=== PATIENT | female | born 1945 | race Caucasian/White ===

== ENCOUNTER 2018-01-30 08:57 | Inpatient (IN) | payer OTHER, MEDICARE ==
[~2018-01-30] VITALS: Ht 165.1 cm; Wt 90.8 kg
--- NOTE | ~2018-01-30 | HC ---
[facility] [place] [address] CONSULTATION Name: ALEC BALBUENA Room #: 217-P ADM IN M.R.#: [id number] Admission: 01/30/18 Attend Phys: Amanda Odell MD Discharge: Date of : 45 Report #: [id number] THIS REPORT FOR: //name// CC: Ramonita Odell MD REASON FOR CONSULTATION: Possible history of carcinoid though I talked with Dr. Hernandez Pina and the patient has not had a biopsy proven tissue nor DOTA-HORNE PET scan evidence of tumor. He does not think the patient actually has carcinoid. REQUESTED BY: Amanda Odell MD. PROVIDED BY: Adilson Diego MD. HISTORY OF PRESENT ILLNESS: The patient is a 72-year-old female who came for acute mental status changes from [facility]. She has been treated for UTI and became more changes in her mental status. She also had a CAT scan since she has been here, appears to have some thickening of the descending and sigmoid colon. There is a concern about possible colitis. It sound like appears also some air in the bowel wall. The patient is able to answer some simple questions today. Per her, she has been seeing Dr. Pina for about 6 years. Certainly, she has had some chronic abdominal pain, has had some other symptoms and according to Dr. Pina, he had had a trial of Sandostatin in the past when her diarrhea got very bad, but it sounds like a DOTA-HORNE PET, which is very sensitive for carcinoid tumor was negative. She has never had any evidence of progressive changes on CAT scans that sound like her tumor markers have never been significantly elevated to suggest an occult tumor. His current thinking is that she most likely does not have a carcinoid tumor causing her current symptoms. The patient at this time talks about having abdominal discomfort, some slight nausea, it sounds like she has had it consistently, but it sounds like a little bit worse than usual, sound like per a comment she made that she might have had something similar about a year ago. She also has trouble tolerating narcotics. She has episodes of diarrhea occasionally. She has not had any recent worsening of her dysuria. No skin rashes. I am not sure that she has had any flushing so to speak. She is not really aware of any fevers. It sounds like she denies any melena or hematochezia. PAST HISTORY: As best we can tell, there are still awaiting records from [facility]. There is a history of some chronic diarrhea and abdominal pain, also may be colitis a year ago, also possible coronary artery disease, possible COPD, possible hypertension, also was found to have a possible early altered mental status. FAMILY HISTORY: It sounds like there is no one specifically in the family with [facility] [address] [address] CONSULTATION Name: ALEC BALBUENA Room #: 217-P ADM IN M.R.#: [id number] Admission: 01/30/18 Attend Phys: Amanda Odell MD Discharge: Date of : 45 Report #: [id number] the cancer, though she does have a nephew with some type of colon difficulties. SOCIAL HISTORY: She most recently had had a job. 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 Stopped smoking when she was back in her 30s. No alcohol, no street drugs. ALLERGIES: SUPPOSEDLY SHE HAD HAD TROUBLES WITH BELLADONNA, CODEINE, ERYTHROMYCIN, HYDROCODONE, HYDROMORPHONE, IBUPROFEN, LOVASTATIN, MORPHINE, NIFEDIPINE, PHENOBARBITAL, SHELLFISH AND MEPERIDINE. MEDICATIONS: At this time in the hospital currently include amlodipine 5 b.i.d., metronidazole IV b.i.d., Cipro b.i.d. IV, labetalol 20 mg q. 1 IV p.r.n., Compazine 25 q. 12 p.r.n., Zofran 8 mg q. 6 scheduled IV, doxazosin 2 mg at bedtime, metoclopramide 5 mg a.c. and at bedtime, diltiazem 240 daily, oral lisinopril 40 daily, carvedilol 25 b.i.d., hydralazine 50 t.i.d., Tylenol p.r.n., Lovenox 40 mg at bedtime, did receive a dose of cefoxitin in the ER. PHYSICAL EXAMINATION: GENERAL: The patient appears her stated age. VITAL SIGNS: Height is 5 feet 5 inches or 165.1 cm, weight is 212 pounds or 96.2 kilograms. Recent blood pressure is 218/96 with respirations of 19, pulse of 89, temperature is afebrile at 98.2. NEUROLOGIC: The patient's mood is pleasant. She was awoken from sleep, little slow on answering questions, was a bit fuzzy and where she is, but got the date after some thinking. Face appears to be symmetrical, moving extremities. Speech pattern, slow, but appears intentional. LYMPHATICS: No enlarged lymph nodes in the supraclavicular, cervical, axillary or inguinal region. ABDOMEN: Slightly obese, mildly uncomfortable/tender. No obvious masses or organomegaly. EXTREMITIES: Without clubbing, cyanosis, does not appear to have any edema. LABORATORY DATA: Lab results here show electrolytes normal, creatinine 1.2, transaminases normal, alkaline phosphatase 89, total bilirubin 0.3, albumin 3. Recent white count 7.1, hemoglobin 12.8, MCV 79.6, platelets 204, differential nonacute. UA dipstick here had 2+ protein, positive for nitrite. Originally on admission, did have 10-30 moderate bacteria. Urine culture at this time shows less than 10,000 colony forming units of bacteria per mL. ASSESSMENT AND PLAN: 1. Question of carcinoid, this is not proven, talked to Dr. Ng or communicate with Dr. Hernandez Pina. He is doubtful that the patient has a tumor and has never had a biopsy according to his communication, had a DOTA-HORNE PET, which was unremarkable and also sounds like urine and serum markers have not shown suggested evidence of carcinoid tumor, not think the patient has not [address] [address] CONSULTATION Name: ALEC BALBUENA Room #: 217-P ADM IN .R.#: [id number] Admission: 01/30/18 Attend Phys: Amanda Odell MD Discharge: Date of : 45 Report #: [id number] benefited from octreotide for diarrhea, which can be nonspecific. 2. Possible colitis per clinical and CT findings, on antibiotics. GI is following. 3. History of possible Klebsiella urinary tract infection and sepsis. Continue with antibiotics. Cultures here were drawn after being on antibiotics. 4. Mentation changes may be related to infections above, though I am not sure her baseline, slightly fuzzy today, not sure if this is worse or better. 5. Chronic, it is hard to tell either abdominal, back pain or both, has some type of a stimulator pump device in place, intolerant of oral agents. 6. Hypertension, very high on multiple medications per others. 7. Possible history of coronary artery disease per others. 8. Supposedly history of chronic obstructive pulmonary disease, per others. We will be available if questions arise. <ELECTRONICALLY SIGNED> By: Adilson Diego MD 02/06/18 0719 0904 1231 Adilson Diego MD /nt
--- NOTE | ~2018-01-30 | 2DMMODE ---
[facility] [address] [place] [address] 2 D/M-MODE ECHOCARDIOGRAM Name: ALEC BALBUENA Jose Carlos Room #: 217-P ADM IN ..#: [id number] Admission: 01/30/18 Attend Phys: Amanda Odell MD Discharge: Date of : 45 Date of Service: 02/05/18 1200 Report #: [id number] THIS REPORT FOR: //name// APPROVED REPORT Study performed: 02/05/2018 11:06:15 EXAM: Comprehensive 2D, Doppler, and color-flow Echocardiogram Patient Location: In-Patient Room #: [facility] Status: routine BSA: 2.03 HR: 70 bpm BP: 218/96 mmHg Other Information Study Quality: Adequate Indications Diabetes CAD labile HTN, HLD, DALIA, stents x4 2D Dimensions RVDd: 35.69 mm IVSd: 13.66 (7-11mm) LVOT Diam: 21.00 (18-24mm) LVDd: 48.74 mm PWd: 13.61 (7-11mm) Ascending Ao: 26.69 (22-36mm) LVDs: 29.66 (25-40mm) Aortic Root: 30.15 mm IVC: 23.00 mm Volumes Left Atrial Volume (Systole) Single Plane 4CH: 50.55 mL Single Plane 2CH: 80.36 mL LA ESV Index: 33.00 mL/m2 Aortic Valve AoV Peak Perry.: 1.86 m/s AO Peak Gr.: 13.91 mmHg LVOT Max P.00 mmHg LVOT Max V: 1.32 m/s TOSHIA Vmax: 2.46 cm2 Mitral Valve E/A Ratio: 1.2 MV Decel. Time: 316.67 ms [facility] [address] [place] [address] [place] [address] 2 D/M-MODE ECHOCARDIOGRAM Name: ALEC BALBUENA Jose Carlos Room #: 217-P [facility] IN ..#: [id number] Admission: 01/30/18 Attend Phys: Amanda Odell MD Discharge: Date of : 45 Date of Service: 02/05/18 1200 Report #: [id number] MV E Max Perry.: 0.99 m/s MV A Perry.: 0.86 m/s MV PHT: 91.84 ms IVRT: 92.27 ms Pulmonary Valve PV Peak Perry.: 1.17 m/s PV Peak Gr.: 5.52 mmHg Pulmonary Vein P Vein S: 0.55 m/s P Vein A: 0.22 m/s P Vein D: 0.68 m/s P Vein A Dur.: 175.3 msec P Vein S/D Ratio: 0.81 Tricuspid Valve TR Peak Perry.: 3.14 m/s RAP Estimate: 10.00 mmHg TR Peak Gr.: 39.50 mmHg PA Pressure: 50.00 mmHg Left Ventricle The left ventricle is normal size. Mild to moderate concentric left ventricular hypertrophy. The left ventricular systolic function is normal. The left ventricular ejection fraction is within the normal range. LVEF is 60%. Right Ventricle The right ventricle is normal size. The right ventricular systolic function is normal. Atria Left atrium is at the upper limits of normal. Right atrium is at the upper limits of normal. Aortic Valve Aortic valve is mildly calcified. Trace aortic regurgitation. There is no aortic valvular stenosis. Mitral Valve The mitral valve is normal in structure. Trace mitral regurgitation. No evidence of mitral valve stenosis. Tricuspid Valve The tricuspid valve is normal in structure. mild to moderate tricuspid regurgitation with an eccentric jet. PAP is estimated at 50 mmHg Pulmonic Valve [address] [address] 2 D/M-MODE ECHOCARDIOGRAM Name: ALEC BALBUENA Room #: 217-P [facility] IN .R.#: [id number] Admission: 01/30/18 Attend Phys: Amanda Odell MD Discharge: Date of : 45 Date of Service: 02/05/18 1200 Report #: [id number] Pulmonic valve is not well visualized. Trace to mild pulmonic regurgitation. Great Vessels The aortic root is normal in size. IVC is dilated and collapses >50% with inspiration. Pericardium There is no pericardial effusion. <Conclusion> The left ventricle is normal size. LVEF is 60%. Left atrium is at the upper limits of normal. Right atrium is at the upper limits of normal. Aortic valve is mildly calcified. Trace aortic regurgitation. There is no aortic valvular stenosis. The mitral valve is normal in structure. Trace mitral regurgitation. The tricuspid valve is normal in structure. mild to moderate tricuspid regurgitation with an eccentric jet. PAP is estimated at 50 mmHg There is no pericardial effusion. <ELECTRONICALLY SIGNED> By: Betito Pearson MD 02/05/181199 1200 99 Betito Pearson MD /INF
[~2018-01-30 08:57] MED LIST: ADULT LOW DOSE81 MG; ASMANEX0.135 G1 IH; ASMANEX0.135 GM IH; ASPIRIN EC81 M1 PO; ASPIRIN325 PO; B-50 COMPLEX1 EAC1; BENADRYL25 MG; BENADRYL25 MG PO; CARAFATE 1 GM TA1 G1 PO; CARVEDILOL12.5 MG PO; CELEXA 20 MG TA20 M1 PO; CELEXA40 MG PO; COZAAR100 MG PO; DICYCLOMINE HCL20 MG PO; DILTIAZEM 24HR240 MG PO; EFFIENT10 MG PO; ESTROPIPATE0.75 MG PO; FERREX 150150 MG PO; GABAPENTIN100 MG PO; GLUCOPHAGE500 MG PO; GLUMETZA500; IMDUR 30 MG TAB30 M1; IMDUR 30 MG TAB30 M1 PO; IMDUR 60 MG TAB60 M1 PO; K-DUR 20 MEQ T20 MEQ PO; KEFLEX500 MG PO; KLOR-CON 1010 MEQ PO; LASIX 20 MG TAB20 MG PO; LISINOPRIL20 MG PO; METFORMIN PO; NEURONTIN 300M300 M2 PO; NEXIUM 40 MG CA40 M1 PO; NITROSTAT0.4 MG SUBLING; NOVOLOG100 UNIT/1; PREDNISOLONE PO; PREDNISONE 20 M20 MG OR; PREDNISONE PO; PROAIR HFA8.5 GM INH; PROTONIX40 M2; SPIRIVA INH; SYMBICORT160 MCG/4. INH; TESSALON PERLE100 MG PO; TOPROL XL100 MG PO; VENTOLIN17 GM; VITAMIN B-625 MG PO; VITCB500GO PO; XANAX 0.5 MG0.5 M1 PO; ZANTAC 150MG T150 M1 PO; ZOCOR40 MG PO
[2018-01-30 08:58] VITALS: BP 123/54
[2018-01-30 10:01] LABS: ABSOLUTE NEUTROPHILS 5.5 thou/uL (1.4-8.2); BASOPHILS 0.4 % (0.0-2.0); EOSINOPHILS 1.1 % (0.0-3.0); HEMATOCRIT 35.2 % (37.0-47.0); HEMOGLOBIN 11.9 gm/dL (12.0-15.0); LYMPHOCYTES 12.8 % (24.0-44.0); MCH 27.3 pg (26.0-34.0); MCHC 33.8 g/dL (28.0-37.0); MCV 80.8 fL (80.0-100.0); PLATELET COUNT 161 thou/uL (150-400); POLYS 75.7 % (36.0-66.0); RBC 4.36 mil/uL (4.20-5.00); RDW 14.3 % (10.5-14.5); WBC 7.3 thou/uL (4.0-11.0)
[2018-01-30 10:06] LABS: URINE BILIRUBIN NEGATIVE (Negative); URINE BLOOD NEGATIVE (Negative); URINE CLARITY CLEAR; URINE COLOR YELLOW; URINE GLUCOSE-RANDOM* NEGATIVE (Negative); URINE KETONES NEGATIVE (Negative); URINE PROTEIN (DIPSTICK) 2+ (Negative); URINE UROBILINOGEN 0.2 E.U./dl (0.2-1.0)
[2018-01-30 10:07] LABS: URINE LEUKOCYTES-REFLEX TRACE (Negative); URINE NITRITE-REFLEX POSITIVE (Negative)
[2018-01-30 10:11] LABS: CREATININE 1.1 mg/dL (0.6-1.0); POTASSIUM 3.6 mmol/L (3.5-5.1)
[2018-01-30 10:14] LABS: MUCUS 0-3 Light strn/LPF (None Seen); SQUAMOUS 0-3 Few /LPF (0-3)
[2018-01-30 10:15] LABS: CASTS None Seen /LPF (None Seen); URINE RBC 3-10 Few /HPF (0-2); WBC CLUMPS Few (None Seen)
[2018-01-30 10:16] LABS: CRYSTALS None Seen /LPF (None Seen); RENAL EPITHELIAL CELLS 0-3 Few /LPF (None Seen); TRANSITIONAL EPITHEL CELL 0-3 Few /LPF (None Seen)
[2018-01-30 16:25] VITALS: BP 145/68
[2018-01-30 18:47] VITALS: BP 145/68
[2018-01-31 03:32] VITALS: BP 121/59
[2018-01-31] MEDS ORDERED: COREG25 MG PO (04:47)
[2018-01-31] MEDS ORDERED: CLONIDINE0.1 PO (04:48)
[2018-01-31] MEDS ORDERED: CRANBERRY CONC500 MG PO (04:50)
[2018-01-31] MEDS ORDERED: BENTYL 20 MG TA20 M1 PO (05:03)
[2018-01-31] MEDS ORDERED: PROZAC20 MG PO (05:05)
[2018-01-31] MEDS ORDERED: FLONASE 0.05%50 MCG NASAL (05:06)
[2018-01-31] MEDS ORDERED: HYDRALAZINE 2525 MG PO (05:07)
[2018-01-31] MEDS ORDERED: GLIMEPIRIDE1 MG PO (05:07)
[2018-01-31] MEDS ORDERED: LIDOCAINE PAIN1 EACH TOP (05:12)
[2018-01-31] MEDS ORDERED: MIRALAX17 GM PO (05:15)
[2018-01-31] MEDS ORDERED: OMEPRAZOLE40 MG PO (05:16)
[2018-01-31] MEDS ORDERED: NAMENDA 10 MG T10 MG PO (05:16)
[2018-01-31] MEDS ORDERED: VITAMIN B-12500 MCG PO (05:17)
[2018-01-31] MEDS ORDERED: ONDANSETRON HCL4 M2 PO (05:18)
[2018-01-31] MEDS ORDERED: LISINOPRIL20 MG PO (05:20)
[2018-01-31] MEDS ORDERED: TYLENOL325 MG PO (05:24)
[2018-01-31 07:17] VITALS: BP 152/69
[2018-01-31 20:01] VITALS: BP 184/82
[2018-02-01 05:20] VITALS: BP 159/92
[2018-02-01 07:25] VITALS: BP 179/71
[2018-02-01 19:27] VITALS: BP 148/63
[2018-02-02] VITALS (7 sets, daily range): BP systolic 163–225; BP diastolic 64–140
[2018-02-03] VITALS (14 sets, daily range): BP systolic 160–215; BP diastolic 80–110
[2018-02-03 05:32] LABS: CALCIUM 8.6 mg/dL (8.5-10.1); CREATININE 1.2 mg/dL (0.6-1.0); POTASSIUM 4.2 mmol/L (3.5-5.1)
[2018-02-03 05:37] LABS: HEMATOCRIT 37.9 % (37.0-47.0); HEMOGLOBIN 12.7 gm/dL (12.0-15.0); MCH 26.6 pg (26.0-34.0); MCHC 33.4 g/dL (28.0-37.0); MCV 79.6 fL (80.0-100.0); RBC 4.76 mil/uL (4.20-5.00); RDW 14.2 % (10.5-14.5); WBC 7.1 thou/uL (4.0-11.0)
[2018-02-03 10:32] LABS: AMYLASE 36 U/L (25-115); DIRECT BILIRUBIN < 0.1 mg/dL (<0.1-0.3); LIPASE 135 U/L (73-393); SGOT 21 U/L (15-37); SGPT 18 U/L (30-65); TOTAL BILIRUBIN 0.3 mg/dL (<0.1-1.0); TOTAL PROTEIN 6.9 g/dL (6.4-8.2)
[2018-02-04 05:26] VITALS: BP 223/111
[2018-02-04 07:58] VITALS: BP 206/119
[2018-02-04 13:53] VITALS: BP 182/90
[2018-02-04 15:47] VITALS: BP 178/89
[2018-02-04 15:52] LABS: BE(vivo) 3.4 mmol/L (-2 to +3); HCO3 29.5 mmol/L (22.0-26.0); PCO2 VENOUS 50.9 mmHg (41.0-51.0); PO2 VENOUS 111.5 mmHg (35.0-45.0)
[2018-02-04 17:23] LABS: HEMATOCRIT 38.4 % (37.0-47.0); HEMOGLOBIN 12.8 gm/dL (12.0-15.0); MCH 26.7 pg (26.0-34.0); MCHC 33.5 g/dL (28.0-37.0); MCV 79.6 fL (80.0-100.0); RBC 4.82 mil/uL (4.20-5.00); RDW 13.9 % (10.5-14.5); WBC 7.1 thou/uL (4.0-11.0)
[2018-02-04 20:57] VITALS: BP 193/94
[2018-02-05 00:16] VITALS: BP 193/90
[2018-02-05 05:36] VITALS: BP 194/88
[2018-02-05 07:39] VITALS: BP 218/96
[2018-02-05 10:27] LABS: CREATININE 0.9 mg/dL (0.6-1.0); POTASSIUM 3.8 mmol/L (3.5-5.1)
[2018-02-05 17:11] VITALS: BP 106/51
[2018-02-05 20:45] VITALS: BP 189/90
[2018-02-06] VITALS (7 sets, daily range): BP systolic 130–188; BP diastolic 66–87
[2018-02-06 05:20] LABS: CALCIUM 8.9 mg/dL (8.5-10.1); CREATININE 0.9 mg/dL (0.6-1.0); POTASSIUM 3.8 mmol/L (3.5-5.1)
[2018-02-07 03:16] VITALS: BP 128/63
[2018-02-07 07:45] VITALS: BP 113/57
[2018-02-07 12:00] VITALS: BP 145/66
[2018-02-07 15:55] VITALS: BP 151/80
[2018-02-07 20:22] VITALS: BP 159/78
[2018-02-08 00:24] VITALS: BP 148/67
[2018-02-08 05:53] VITALS: BP 179/78
[2018-02-08 08:00] VITALS: BP 149/71
[2018-02-08 17:30] VITALS: BP 117/63
[2018-02-08 19:48] VITALS: BP 111/59
[2018-02-09 04:27] VITALS: BP 130/67
[2018-02-09 06:23] LABS: HEMATOCRIT 41.2 % (37.0-47.0); HEMOGLOBIN 13.7 gm/dL (12.0-15.0); MCH 26.8 pg (26.0-34.0); MCHC 33.4 g/dL (28.0-37.0); MCV 80.4 fL (80.0-100.0); RBC 5.13 mil/uL (4.20-5.00); RDW 14.3 % (10.5-14.5); WBC 8.5 thou/uL (4.0-11.0)
[2018-02-09 06:31] LABS: CALCIUM 9.3 mg/dL (8.5-10.1); CREATININE 1.2 mg/dL (0.6-1.0); POTASSIUM 3.5 mmol/L (3.5-5.1)
[2018-02-09 07:57] VITALS: BP 109/49
[2018-02-09] MEDS ORDERED: METRONIDAZOLE500 M4 PO (10:17)
[2018-02-09] MEDS ORDERED: CIPRO500 MG PO (10:17)
[2018-02-09] MEDS ORDERED: CLONIDINE HCL0.2 M2 PO (10:19)
[2018-02-09] MEDS ORDERED: CARDURA4 MG PO (10:20)
[2018-02-09] MEDS ORDERED: AMLODIPINE BESYL5 M1 PO (10:21)
[2018-02-09] MEDS ORDERED: REGLAN 10 MG TA10 MG PO (10:25)
[2018-02-09] MEDS ORDERED: NAMENDA 5 MG TAB5 M1 PO (10:26)
[2018-02-09] MEDS ORDERED: NEURONTIN 300300 M1 PO (10:28)
[2018-02-09] MEDS ORDERED: SPIRONOLACTONE25 M1 PO (10:28)
[2018-02-09 11:02] VITALS: BP 116/55
[2018-02-09 11:43] VITALS: BP 116/55
== END 2018-02-09 13:30 | DRG 690 ==
LOC: ER 08:57 → EROBS 12:24 → 4E 12:24 → 2N 02-02 21:15
PROVIDERS: Internal Medicine; Internal Medicine Gastroenterology; Nurse Practitioner Gerontology; Student in an Organized Health Care Education/Training Program
PROC: 05HB33Z Insertion of Infusion Device into Right Basilic Vein, Percutaneous Approach (ICD-10-PCS; principal; 2018-02-02)
DX: N39.0 Urinary tract infection, site not specified (principal); G93.40 Encephalopathy, unspecified; E34.0 Carcinoid syndrome; K50.10 Crohn's disease of large intestine without complications; A09 Infectious gastroenteritis and colitis, unspecified; I25.10 Atherosclerotic heart disease of native coronary artery without angina pectoris; E78.00 Pure hypercholesterolemia, unspecified; I10 Essential (primary) hypertension; G47.33 Obstructive sleep apnea (adult) (pediatric); E66.09 Other obesity due to excess calories; F32.9 Major depressive disorder, single episode, unspecified; E11.40 Type 2 diabetes mellitus with diabetic neuropathy, unspecified; Z96.653 Presence of artificial knee joint, bilateral; B96.1 Klebsiella pneumoniae [K. pneumoniae] as the cause of diseases classified elsewhere; J44.9 Chronic obstructive pulmonary disease, unspecified; D64.9 Anemia, unspecified; K21.9 Gastro-esophageal reflux disease without esophagitis; F03.90 Unspecified dementia, unspecified severity, without behavioral disturbance, psychotic disturbance, mood disturbance, and anxiety; I16.0 Hypertensive urgency; G89.29 Other chronic pain; M54.9 Dorsalgia, unspecified; R10.9 Unspecified abdominal pain; E11.43 Type 2 diabetes mellitus with diabetic autonomic (poly)neuropathy; K31.84 Gastroparesis; Z95.5 Presence of coronary angioplasty implant and graft; Z68.33 Body mass index [BMI] 33.0-33.9, adult; Z90.710 Acquired absence of both cervix and uterus; Z90.49 Acquired absence of other specified parts of digestive tract; Z98.49 Cataract extraction status, unspecified eye; Z88.8 Allergy status to other drugs, medicaments and biological substances; Z88.6 Allergy status to analgesic agent; Z88.1 Allergy status to other antibiotic agents; Z91.013 Allergy to seafood; Z79.899 Other long term (current) drug therapy; Z28.89 Immunization not carried out for other reason
CPT/HCPCS: 10081; 10084; 27000

== ENCOUNTER 2018-05-27 19:55 | Inpatient (IN) | payer OTHER ==
[~2018-05-27] VITALS: Ht 165.1 cm; Wt 61.4 kg
[~2018-05-27 19:55] MED LIST changes: +AMLODIPINE BESYL5 M1 PO; +BENTYL 20 MG TA20 M1 PO; +CARDURA4 MG PO; +CIPRO500 MG PO; +CLONIDINE HCL0.2 M2 PO; +CLONIDINE0.1 PO; +COREG25 MG PO; +CRANBERRY CONC500 MG PO; +FLONASE 0.05%50 MCG NASAL; +GLIMEPIRIDE1 MG PO; +HYDRALAZINE 2525 MG PO; +LIDOCAINE PAIN1 EACH TOP; +METRONIDAZOLE500 M4 PO; +MIRALAX17 GM PO; +NAMENDA 10 MG T10 MG PO; +NAMENDA 5 MG TAB5 M1 PO; +NEURONTIN 300300 M1 PO; +OMEPRAZOLE40 MG PO; +ONDANSETRON HCL4 M2 PO; +PROZAC20 MG PO; +REGLAN 10 MG TA10 MG PO; +SPIRONOLACTONE25 M1 PO; +TYLENOL325 MG PO; +VITAMIN B-12500 MCG PO
[2018-05-27 19:56] VITALS: BP 164/83
[2018-05-27 20:03] LABS: BE(vivo) 3.9 mmol/L (-2 to +3); HCO3 28.9 mmol/L (22.0-26.0); PCO2 44.4 mmHg (35.0-45.0); PO2 63.8 mmHg (80.0-100.0); pH 7.431 (7.360-7.450); sO2 92.9 % (92.0-98.0)
[2018-05-27 20:15] LABS: HEMATOCRIT 43.3 % (37.0-47.0); HEMOGLOBIN 14.7 gm/dL (12.0-15.0); MCH 28.4 pg (26.0-34.0); MCV 83.7 fL (80.0-100.0); PLATELET COUNT 153 thou/uL (150-400); RBC 5.17 mil/uL (4.20-5.00); RDW 15.7 % (10.5-14.5); WBC 12.4 thou/uL (4.0-11.0)
[2018-05-27 20:26] LABS: ANION GAP 6 mmol/L (7-16); BUN 25 mg/dL (7-18); CALCIUM 9.3 mg/dL (8.5-10.1); CHLORIDE 99 mmol/L (98-107); CO2 31 mmol/L (21-32); CREATININE 1.3 mg/dL (0.6-1.0); GLUCOSE 199 mg/dL (74-106); SODIUM 136 mmol/L (136-145)
[2018-05-27 20:27] LABS: POTASSIUM 5.5 mmol/L (3.5-5.1)
[2018-05-27 20:30] LABS: ALBUMIN 3.9 g/dL (3.4-5.0); DIRECT BILIRUBIN 0.1 mg/dL (<0.1-0.3); TOTAL BILIRUBIN 0.5 mg/dL (<0.1-1.0); TOTAL PROTEIN 7.1 g/dL (6.4-8.2)
[2018-05-27 20:34] LABS: TROPONIN-I <0.06 ng/mL (<0.06)
[2018-05-27 20:37] LABS: ANISOCYTOSIS 1+
[2018-05-27 20:38] LABS: POLYCHROMASIA OCCASIONAL
[2018-05-27 21:24] LABS: URINE BILIRUBIN NEGATIVE (Negative); URINE BLOOD TRACE (Negative); URINE CLARITY CLEAR; URINE COLOR YELLOW; URINE GLUCOSE-RANDOM* NEGATIVE (Negative); URINE KETONES NEGATIVE (Negative); URINE NITRITE-REFLEX NEGATIVE (Negative); URINE PROTEIN (DIPSTICK) NEGATIVE (Negative); URINE UROBILINOGEN 0.2 E.U./dl (0.2-1.0)
[2018-05-27 21:25] LABS: URINE LEUKOCYTES-REFLEX 1+ (Negative)
[2018-05-27 21:38] LABS: SQUAMOUS 0-3 Few /LPF (0-3)
[2018-05-27 21:39] LABS: CASTS None Seen /LPF (None Seen); CRYSTALS None Seen /LPF (None Seen); TRANSITIONAL EPITHEL CELL 0-3 Few /LPF (None Seen); URINE RBC 0-2 Rare /HPF (0-2); URINE WBC-REFLEX 0-5 Rare /HPF (0-5)
[2018-05-27 22:08] VITALS: BP 148/70
[2018-05-27 22:30] VITALS: BP 147/63
--- NOTE | 2018-05-28 00:29 | NUR ---
PATIENT WAS A NEW ADMISSION TO THE UNIT THIS SHIFT. SHE ARRIVED VIA CART FROM THE ER ON BIPAP. PATIENT IS MINIMALLY RESPONSIVE AND UNABLE TO PARTICIPATE IN ADMISSION PROCESS. PATIENT DID SCREEN POSITIVE ON SEPSIS SCREEN WITH ORDERS RECEIVED FROM DOCTOR. NURSE TO COMPLETE ADMISSION AND INITIATE CARE PLAN.
[2018-05-28] MEDS ORDERED: XANAX 0.25 MG0.25 MG PO (00:55)
[2018-05-28] MEDS ORDERED: LOPERAMIDE 2 MG2 M1 PO (01:09)
[2018-05-28] MEDS ORDERED: VITAMINC500 PO (01:11)
[2018-05-28] MEDS ORDERED: METHENAMINE MAND1 G2 PO (01:13)
[2018-05-28 04:10] VITALS: BP 139/66
[2018-05-28 07:43] VITALS: BP 118/60
--- NOTE | 2018-05-28 08:35 | EKG ---
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1945 Requested By: Lake Barrera Order Number: [id number] MD: Mahesh Ferrara Measurements Intervals [place] Rate: 113 P: 81 FL: 118 QRS: 43 QRSD: 81 T: 64 QT: 317 QTc: 435 Interpretive Statements Sinus tachycardia Otherwise normal tracing Compared to ECG 10/21/2012 08:37:40 Heart rate has increased Electronically Signed On 05-28-2018 8:35:[address] OPENINGS INSPECTOR by Mahesh Ferrara [email or web address] ��������������������������������������������� <ELECTRONICALLY SIGNED> ���������������������������������������� By: Mahesh Ferrara MD, [facility] ��������������������������������������������� 05/28/18 0835 00 00 Mahesh Ferrara MD, FACC /EPI
--- NOTE | 2018-05-28 09:57 | NUR ---
ASSESSMENT: CM REVIEWED CHART AND MET WITH PATIENT AT THE BEDSIDE. 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 PT REPORTS SHE NORMALLY USES A WAKLER FOR AMBULATION. PT REPORTS BEING ON OXYGEN AT BEDTIME. PT PLANS ON RETURNING BACK TO [facility] ONCE MEDICALLY STABLE. CM SPOKE WITH PATIENTS ALEKSANDAR MICHELLE WHO IS CURRENTLY OUT OF TOWN FOR A BUT WILL BE BACK LATER THIS WEEK. CM ALSO SPOKE WITH THE CHARGE NURSE AT [facility] AND SENT UPDATED CLINICAL TO ADMISSIONS FAX [phone]. CM WILL CONTINUE TO FOLLOW TO ASSIST NEEDED.
--- NOTE | 2018-05-28 10:49 | NUR ---
Nutrition: assess d/t diagnosis. Pt admitted for sepsis and hypoxia. Hx of COPD, HTN, CAD, and dementia. Pt sleeping during attemted visited. Wt hx shows stable wt over past 4 months. Obese per BMI. Will need to assess PO intake. Otherwise consider low risk at this time.
[2018-05-28 11:20] VITALS: BP 130/55
[2018-05-28 15:30] VITALS: BP 141/55
--- NOTE | 2018-05-28 15:58 | NUR ---
ASSUMED CARE OF PT AT 0700 THIS SHIFT. PT HAS BEEN COOPERATIVE, HAS DENIED ANY PAIN. PT HAS BEEN ORIENTED TO SELF, PLACE, AND TIME, HOWEVER VERY CONFUSED ABOUT SITUATION. PT BELIEVES SHE IS IN THE HOSPITAL FOR A PROCEDURE. PT TOLERATED BIPAP WELL AT NIGHT, HOWEVER PT IS ONLY REQUIRING 3 L NC FOR OXYGEN THIS SHIFT. PT WORKED WITH PHYSICAL THERAPY, WAS ABLE TO WALK WITH WALKER. PT WAS ALSO EVALUATED BY SPEECH THERAPY, SEE NOTE FOR FURTHER DIRECTIONS. PT HAS NOT HAD VISITORS THIS SHIFT, EDUCATION WAS PROVIDED. PLAN OF CARE IS TO CONTINUE TO MONITOR PT CLOSELY AT THIS TIME.
[2018-05-28 19:06] VITALS: BP 132/47
[2018-05-29 00:05] VITALS: BP 124/54
[2018-05-29 05:48] VITALS: BP 149/68
[2018-05-29 05:52] LABS: HEMATOCRIT 30.2 % (37.0-47.0); MCHC 34.5 g/dL (28.0-37.0); MCV 84.1 fL (80.0-100.0); RBC 3.59 mil/uL (4.20-5.00); RDW 15.7 % (10.5-14.5); WBC 10.1 thou/uL (4.0-11.0)
[2018-05-29 06:00] LABS: HEMOGLOBIN 10.4 gm/dL (12.0-15.0)
[2018-05-29 06:03] LABS: CALCIUM 8.5 mg/dL (8.5-10.1); CREATININE 1.2 mg/dL (0.6-1.0); POTASSIUM 4.3 mmol/L (3.5-5.1)
--- NOTE | 2018-05-29 06:42 | NUR ---
PATIENT IS PROGRESSING IN HER CARE PLAN. VITAL SIGNS STABLE WITH PATIENT HAVING NO COMPLAINTS OF PAIN OR NAUSEA. ORIENTED TO SELF, PLACE AND SITUATION, PATIENT IS ABLE TO CALL APPROPRIATELY AND HAS SHOWN MARKED IMPROVEMENT WITH MENTATION. BREATHING STABLE ON NASAL CANNULA EVIDENCED BY READINGS ON CONTINUOUS SATURATION MONITOR. UP MULTIPLE TIMES TO BEDSIDE COMMODE WITH ASSISTANCE INCIDENT FREE. CONTINUE PLAN OF CARE.
[2018-05-29 07:36] VITALS: BP 143/68
[2018-05-29 11:49] VITALS: BP 153/70
--- NOTE | 2018-05-29 13:04 | NUR ---
ON-GOING ASSESSMENT: CM REVIEWED CHART AND SPOKE WITH ATTENDING. PT IS SLOWLY PROGRESSING TOWARDS DISCHARGE GOALS. PT IS STILL ON IV SOLUMEDROL AND NO PLANS FOR DISCHARGE OVER THE WEEKEND. CM CONTACTED [facility]TO NOTIFY AND LEFT VM. CM WILL CONTINUE TO FOLLOW TO ASSIST NEEDED.
--- NOTE | 2018-05-29 14:26 | HC ---
[facility] [place] [address] CONSULTATION Name: ALEC BALBUENA Room #: 360[facility] IN M.R.#: [id number] Admission: 05/27/18 ������������������ Attend Phys: Amanda Odell MD Discharge: ������������������ Date of : 45 Report #: [id number] THIS REPORT FOR: //name// CC: Amanda Odlel PULMONARY CONSULTATION REFERRING PHYSICIAN: Amanda Odell MD. REASON FOR REFERRAL: Dyspnea. HISTORY OF PRESENT ILLNESS: The patient is a 72-year-old white female who was brought to the Emergency Department with increasing dyspnea, decreased level of consciousness. She is being admitted for COPD exacerbation. A pulmonary consultation was requested. The patient was previously admitted with similar presentation in 01/2018. The patient has multiple medical problems including COPD, dementia, sleep apnea. She was apparently in her usual state of health and normally alert and oriented until the day of presentation. Her saturation was said to be as low as 70%. In the ER, the patient was found to be dyspneic, and distress, wheezing and hypoxic. BiPAP was placed. She is currently doing much better. She is off the BiPAP. Dyspnea is less. She is awake, in no distress. She denies any recent chest pain, productive cough, night sweats or chills. PAST MEDICAL HISTORY: Notable for COPD, diabetes mellitus type 2, sleep apnea on CPAP with O2, dementia, coronary artery disease, prior multiple stent placements, depression, neuropathy, chronic fatigue, chronic anemia. PAST SURGICAL HISTORY: Notable for bilateral knee replacement, left shoulder surgery, cholecystectomy, appendectomy, bladder surgery, repair of the ruptured rectum, back surgery for ruptured disk, tonsillectomy, eyelid surgery, cataract surgery and pain pump placement. ALLERGIES: MULTIPLE INCLUDING BELLADONNA, CODEINE, ERYTHROMYCIN, HYDROCODONE, HYDROMORPHONE, IBUPROFEN, LOVASTATIN, MORPHINE, NIFEDIPINE, PHENOBARBITAL, MEPERIDINE, REACTIONS NOT SPECIFIED. SHE IS ALSO ALLERGIC TO SHELLFISH. MEDICATIONS: From the facility are reviewed including ProAir, aspirin, Nitrostat, Symbicort, Lasix, Coreg, cranberry, Prozac, Flonase, hydralazine, MiraLax, omeprazole, Zofran, Zestril. FAMILY HISTORY: Noncontributory. [facility] [address] [place] [address] CONSULTATION Name: ALEC BALBUENA Room #: 360-P [facility] IN M.R.#: [id number] Admission: 05/27/18 ������������������ Attend Phys: Amanda Odell MD Discharge: ������������������ Date of : 45 Report #: [id number] SOCIAL HISTORY: No prior tobacco or alcohol use. REVIEW OF SYSTEMS: As mentioned above, otherwise 10-point system review negative. PHYSICAL EXAMINATION: GENERAL: She is awake, alert, in no apparent distress at this time. VITAL SIGNS: Temperature maximum was 101.5 degrees Fahrenheit, currently it is 98 degrees Fahrenheit, pulse is 75, respiratory rate is 18, blood pressure is 132/40 mmHg and saturation 96%. HEENT: Normocephalic, atraumatic. NECK: Supple without lymphadenopathy or thyromegaly. CHEST: Breath sounds are fair, mild expiratory wheezes. No obvious rales. CARDIOVASCULAR: Normal S1, S2. There are no murmurs or gallop. There is no JVD. There is no carotid bruit. Pulses are 2+/4+ bilaterally. ABDOMEN: Soft, nontender, no organomegaly or masses felt. GENITOURINARY: Deferred. RECTAL: Deferred. EXTREMITIES: There is no edema, cyanosis or clubbing. LABORATORY DATA: Chest x-ray shows mild increase in interstitial changes seen in both lung fontana, more so on the right lower lobe. This appears to be chronic. BNP is 300. Lactic acid is 2.7. Influenza A and B is negative. CT head was grossly unremarkable for any acute changes. There are chronic changes noted. EKG shows sinus tachycardia, no acute ischemic changes. Electrolytes: Sodium 136, potassium 5.5, chloride 99, CO2 of 31, BUN is 25, creatinine is 1.3. Liver enzymes are grossly unremarkable. WBC 12,400, no significant bandemia. Albumin 3.9. Arterial blood gas revealed pH 7.43, pCO2 of 44, pO2 of 63 on 100% FiO2. IMPRESSION: Progressive dyspnea, altered mental status in this 72-year-old white female. She has a history of chronic obstructive pulmonary disease. She had similar presentation on the last admission. Etiology likely related to exacerbation of chronic obstructive pulmonary disease. There is possible pneumonia along with urinary tract infection. 1. Apparent history of chronic obstructive pulmonary disease, note the patient has never smoked. Question whether the patient in fact may have asthma instead. Agree with bronchodilators and corticosteroids. 2. Obstructive sleep apnea on CPAP with O2 at nights. 3. Febrile illness, sepsis, possible pneumonia, probable urinary tract infection. 4. Encephalopathy, likely due to sepsis. 5. Acute hypoxic respiratory failure due to above. 6. Coronary artery disease with past history of a stent placement along with [facility] [address] [place] [address] CONSULTATION Name: ALEC BALBUENA Room #: 360-P [facility] IN M.R.#: [id number] Admission: 05/27/18 ������������������ Attend Phys: Amanda Odell MD Discharge: ������������������ Date of : 45 Report #: [id number] coronary artery bypass surgery. 7. Diabetes mellitus type 2. 8. Senile dementia. 9. Chronic fatigue, anemia. RECOMMENDATION: Agree with broad-spectrum antibiotics, bronchodilators and corticosteroids. DVT and GI prophylaxis recommended. Thank you for this consultation. ��������������������������������������������� <ELECTRONICALLY SIGNED> ���������������������������������������� By: Elier Hung MD ��������������������������������������������� 05/29/18 1426 1917 1302 Elier Hung MD /nt
--- NOTE | 2018-05-29 15:24 | NUR ---
ASSUMED PATIENT CARE AT 0715. VERY PLEASANT, A&OX3-4 BUT CAN BE FORGETFUL. UP WITH ASSISTX1 WITH WALKER. PATIENTS HR BRADYCARDIC IN THE LATE MORNING AND AFTERNOON, NON-SYMPTOMATIC. O2 SATS IN THE 90'S ON 3 L NC. PATIENT ON CONTINUOUS PULSE OX. ABLE TO MAKE NEEDS KNOWN. PROGRESSING TOWARDS DISCHARGE GOALS.
[2018-05-29 16:54] VITALS: BP 154/68
[2018-05-29 19:11] VITALS: BP 168/66
--- NOTE | 2018-05-30 04:58 | NUR ---
PATIENT IS PROGRESSING IN HER CARE PLAN. VITAL SIGNS STABLE. PATIENT HAVING COMPLAINTS OF NAUSEA AND HEADACHE WHICH WERE TREATED EFFECTIVELY WITH MEDICATIONS. BRADYCARDIA AROUND FIFTY WITH PATIENT ASYMPTOMATIC. EKG AND TROPONIN NEGATIVE. PATIENT FULLY ORIENTED WITH ANXIETY NOTED. ABLE TO CALL APPROPRIATELY FOR NEEDS AND PARTICIPATE IN CARE. BREATHING STABLE EVIDENCED BY READINGS ON CONTINUOUS SATURATION MONITOR. PATIENTS LUNGS ARE COARSE. UP WITH ASSISTANCE TO BEDSIDE COMMODE INCIDENT FREE. CONTINUE PLAN OF CARE.
[2018-05-30 05:01] VITALS: BP 169/84
[2018-05-30 06:18] LABS: HEMATOCRIT 30.2 % (37.0-47.0); HEMOGLOBIN 10.3 gm/dL (12.0-15.0); MCH 28.5 pg (26.0-34.0); MCV 83.9 fL (80.0-100.0); RBC 3.6 mil/uL (4.20-5.00); RDW 15.9 % (10.5-14.5); WBC 8.8 thou/uL (4.0-11.0)
[2018-05-30 06:33] LABS: CALCIUM 8.5 mg/dL (8.5-10.1); CREATININE 1.1 mg/dL (0.6-1.0); POTASSIUM 4.5 mmol/L (3.5-5.1)
[2018-05-30 08:06] VITALS: BP 169/72
[2018-05-30 12:12] VITALS: BP 155/78
[2018-05-30 15:21] VITALS: BP 156/76
--- NOTE | 2018-05-30 19:39 | NUR ---
PATIENT IS ALERT AND ORIENTED BUT SOME CONFUSION THIS EVENING. SHE INDICATED SOME KIDS WERE ON HER BED AND ATTEMPTING TO CUT THE TELEMETRY WIRES ON HER CHEST. THIS AFTERNOON, THE PATIENT WALKED 2 LAPS AROUNG 3W NURING UNIT ON 2L NC PORTABLE 02.
[2018-05-30 20:18] VITALS: BP 180/76
[2018-05-31 03:28] VITALS: BP 194/86
--- NOTE | 2018-05-31 04:13 | NUR ---
PT STILL STATES SHE IS HEARING CHILDREN. REORIENTED TO TIME AND PLACE. PT IS A/0 X4 BUT STILL HAS THE BOUTS OF CONFUSION. PT BRADYCARDIC MOST OF THE SHIFT. AT APPROX 0200 PT STATES SHE IS HAVING SOME NAUSEA, ZOFRAN GIVEN WITH POSITIVE RESULTS. CONTINOUS PULSE OX AND BIPAP WERE DC'D BY RT THIS EVENING. HOURLY ROUNDING.
[2018-05-31 09:12] VITALS: BP 166/71
[2018-05-31 11:35] VITALS: BP 181/68
[2018-05-31 15:39] VITALS: BP 186/54
--- NOTE | 2018-05-31 17:51 | NUR ---
ASSUMED PATIENT CARE AT 0700. A/O X4. HALLUCITION THAT SAW DOG IN ROOM AND HEARING CHILDEN CRY. TITRATED TO RA TOLERATED WELL. UP TO CHAIR. AMBULATED IN ROOM WITH WALKER. PROGRESSSING TOWARDS POC GOALS.
--- NOTE | 2018-05-31 19:30 | EKG ---
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 : 1945 Requested By: Amanda Odell Order Number: [id number] MD: Betito Pearson Measurements Intervals [place] Rate: 47 P: 52 [place]: 136 QRS: 7 QRSD: 87 T: 15 QT: 505 QTc: 447 Interpretive Statements Sinus bradycardia Nonspecific ST-T wave changes Compared to ECG 05/27/2018 20:01:24 Sinus tachycardia no longer present Electronically Signed On 05-31-2018 19:30:26 COMMANDING OFFICER [employer]ARAGE by Betito Pearson [email or web address] ��������������������������������������������� <ELECTRONICALLY SIGNED> ���������������������������������������� By: Betito Pearson MD ��������������������������������������������� 05/31/181929 26 26 Betito Pearson MD /EPI
[2018-05-31 19:50] VITALS: BP 155/80
[2018-06-01 05:20] VITALS: BP 149/77
--- NOTE | 2018-06-01 05:44 | NUR ---
ANIMALS ARE WHAT WAS BEING SEEN BY THE PT DURING THE SHIFT. PT STATES SHE IS SEEING DOGS AND GROUND HOGS. PT ALSO STATES THAT THE HSU ARE BOWING IN. PT IS A/O X3, WHILE OTHER TIMES OUT OF IT. FOLLOWING POC WITH IVPB ANTIBIOTICS. VSS AND URINE OUTPUT OF 2600 ML PER SHIFT. PT HAS NO OTHER COMPLAINTS. HOURLY ROUNDING.
[2018-06-01 05:57] LABS: HEMATOCRIT 32.7 % (37.0-47.0); HEMOGLOBIN 11.4 gm/dL (12.0-15.0); MCH 29.1 pg (26.0-34.0); MCHC 34.8 g/dL (28.0-37.0); MCV 83.6 fL (80.0-100.0); RBC 3.91 mil/uL (4.20-5.00); RDW 15.6 % (10.5-14.5); WBC 7.2 thou/uL (4.0-11.0)
[2018-06-01 06:12] LABS: CALCIUM 8.9 mg/dL (8.5-10.1); CREATININE 1.1 mg/dL (0.6-1.0); POTASSIUM 4.2 mmol/L (3.5-5.1)
[2018-06-01 08:01] VITALS: BP 182/73
[2018-06-01 10:55] VITALS: BP 192/82
--- NOTE | 2018-06-01 11:21 | NUR ---
DP SENT UPDATES TO [facility], PATIENT MAY DC TODAY OR TOMORROW, DEPENDS THE PHYSICIAN STILL NEEDS TO SEE PATIENT. DP WILL CONTACT [facility] TO MAKE SURE THEY RECEIVE UPDATES.
[2018-06-01 15:20] VITALS: BP 185/108; BP 198/105
--- NOTE | 2018-06-01 16:30 | NUR ---
ON-GOING ASSESSMENT: CM REVIEWED CHART AND SPOKE WITH ATTENDING. PATIENT IS SLOWLY PROGRESSING TOWARDS DISCHARGE GOALS. PT WAS GETTING A MIDLINE AND ORAL STEROIDS. PT IS NOT MEDICALLY STABLE AT THIS TIME FOR DISCHARGE. CM WILL CONTINUE TO FOLLOW, PLANS TO RETURN TO [facility] ONCE MEDICALLY STABLE.
[2018-06-01 16:39] LABS: BE(vivo) 4.1 mmol/L (-2 to +3); HCO3 28.4 mmol/L (22.0-26.0); PCO2 41.5 mmHg (35.0-45.0); PO2 79.8 mmHg (80.0-100.0); pH 7.453 (7.360-7.450); sO2 96.3 % (92.0-98.0)
--- NOTE | 2018-06-01 17:26 | NUR ---
CONSULTED TO PLACE A MIDLINE FOR PATIENT TO DISCHARGE ON ZOSYN. DISCUSSED RISKS AND BENIFITS. A #4F POWER MIDLINE WAS PLACED IN THE RIGHT UPPER ARM PER HOSPITAL POLICY. LINE TRIMMED TO 12CM AND ADVANCED WITHOUT DIFFICULTY. LINE SECURED AND RELEASED FOR USE
--- NOTE | 2018-06-01 18:17 | NUR ---
ASSUMED PATIENT CARE AT 0700. A/0 X4 BUT CONFUSED AND HALLUCINATION. SEE DOGS AND CHILDEN IN HER ROOM. DR DUGGAN DID MEDS CHANGE. PATIENT AMBULATED IN HALLWAY WITH WALKER. PROGRESSING TOWARDS POC GOALS.
[2018-06-01 20:20] VITALS: BP 179/113
[2018-06-02 00:32] VITALS: BP 171/92
[2018-06-02 03:50] VITALS: BP 179/94
--- NOTE | 2018-06-02 05:52 | NUR ---
PT WAS A HANDFUL OVERNIGHT. IMPULSIVE AND TRYING TO GET OUT OF THE BED AND SAYING SHE IS LEAVING. STILL SEEING PEOPLE WHO ARE NOT HERE. PT STATES THE HSU ARE BOWING IN. FOLLOWING POC WITH NEW MEDICATIONS AND FOLLOWING POC WITH IVF ANTIBIOTICS. DURING 2100 ASSESSMENT BP WAS ELEVATED AND TREATED IT WITH 1X PRN OF ORAL HYDRALIZINE. BED ALARM IS A MUST. HOURLY ROUNDING.
[2018-06-02 07:22] VITALS: BP 178/90
--- NOTE | 2018-06-02 10:43 | NUR ---
ASSUMED PATIENT CARE AT 0715. A&OX1. PATIENT HALLUCINATING AND IS PARANOID WITH STAFF STATING THAT THE STAFF IS TRYING TO POISON THEM AND ASKING IF I'M IN ON IT TOO. PATIENT REFUSING ALL PO MEDS FROM NURSE. SOME ADDITIONAL MEDICATIONS ORDERED AND PSYCH CONSULTED. PATIENT VERY TEARFUL AND ANXIOUS IN THE LATER MORNING. SPOKE WITH DAUGHTER ABOUT PATIENT CONDITION. NOT PROGRESSING TOWARDS GOALS. FREQUENT ROUNDING TO CHECK NEEDS.
[2018-06-02 12:13] VITALS: BP 160/85
--- NOTE | 2018-06-02 13:46 | NUR ---
ON-GOING ASSESSMENT: CM REVIEWED CHART AND SENT UPDATED CLINICAL TO [facility] FAX. PLANS ARE FOR PATIENT TO RETURN BACK TO [facility] ONCE MEDICALLY STABLE. CM SPOKE WITH PATIENTS DAUGHTER VIVIANA TO UPDATE. CM WILL CONTINUE TO FOLLOW TO ASSIST NEEDED.
[2018-06-02 14:45] VITALS: BP 137/66
[2018-06-02 19:26] VITALS: BP 159/87
[2018-06-03 05:20] VITALS: BP 163/90
--- NOTE | 2018-06-03 07:34 | NUR ---
Received pt. up in recliner chair watching TV. Able to answer orientation questions at start of shift though she is very forgetful nd gets confused. No agitation but she verbalized she is feeling nervous. Anxiety med given to pt. Assisted to go back to bed around 2300 but stayed awake the entire night. Denies being in pain. Bed bath given. She requested to get up in the chair this am. She has been impulsive , hallucinating and heard talking to herself as if she's talking to somebody in the room. When asked who is she talking to she answered she is talking to herself. O2 at 2L/NC ,no respiratory distress. Chair alarm on. Cont. on isolation, afebrile. Will continue to monitor.
[2018-06-03 07:48] VITALS: BP 148/74
[2018-06-03 10:28] LABS: HEMOGLOBIN 11.4 gm/dL (12.0-15.0); MCH 29.2 pg (26.0-34.0); MCHC 34.5 g/dL (28.0-37.0); MCV 84.6 fL (80.0-100.0); RBC 3.9 mil/uL (4.20-5.00); RDW 15.8 % (10.5-14.5); WBC 6.4 thou/uL (4.0-11.0)
[2018-06-03 10:34] LABS: CREATININE 1.2 mg/dL (0.6-1.0); POTASSIUM 3.5 mmol/L (3.5-5.1)
[2018-06-03 10:40] LABS: ALBUMIN 3.3 g/dL (3.4-5.0); TOTAL BILIRUBIN 0.8 mg/dL (<0.1-1.0); TOTAL PROTEIN 6.5 g/dL (6.4-8.2)
[2018-06-03 11:12] VITALS: BP 183/81
--- NOTE | 2018-06-03 13:59 | NUR ---
ASSUMED PATIENT CARE AT 0715. A&OX1. PATIENT HAVING VISUAL AND AUDITORY HALLUCINATIONS. DR. MURRY ORDERED LABS AND A HEAD CT. PATIENT IMPULSIVE. PATIENT VERY TEARFUL IN THE MORNING. NOT PROGRESSING TOWARDS GOALS.
[2018-06-03 16:34] VITALS: BP 204/111; BP 206/104
[2018-06-03 19:20] VITALS: BP 178/73
--- NOTE | 2018-06-03 22:28 | NUR ---
Patient sitting up in chair visiting with daughter. Remains confused and hallucinating about snakes in bed and a girl in her room. REORIENTATED TO HER ROOM AND HER BED. BUT STILL UNABLE TO GRASPED THE TRUTH. UP TO BATHROOM WITH STEADY GAIT AND HAD A SMALL BM AND PLACED HER IN BED. ALL MEDICATIONS TAKEN. WILL OBSERVE FOR ANY SLEEP SINCE SHE HAD QUETIAPINE. REMAINS TALKING IN HER BED AT 2200, SO MORE QUETIAPINE GIVEN ORDERED. BEATTY INTACT WITH YELLOW URINE RETURN. TELE- SHOWS NSR. DENIES ANY PAIN OR SOA. 02 AT 2LNC 02 SAT 95%. DENIES ANY SOA. BOTTOM IS ALITTLE RED BUT NO OPEN AREAS. TAKES HER FOOD FAIR AND HER THIN LIQUIDS OKAY. LUNGS DISM. NO EDEMA NOTED TO LOWER EXTREMITIES. CONT PLAN OF CARE. IV SITE HEALTHY TO UPPER RIGHT EXTRMITTY. BED ALARM ON. SHE HAS NOT PULLED AT ANY TUBES SO FAR WHILE SHE WAS IN BED.
--- NOTE | 2018-06-03 23:34 | NUR ---
PATIENT STILL TALKING AND SPILLED HER WATER ALL OVER THE ROOM. REMAINS CONFUSED.
--- NOTE | 2018-06-04 02:24 | NUR ---
HALDOL GIVEN BECAUSE SHE HAS NOT SLEEP ALL NIGHT. THE SECOND DOSE OF SEROQUEL DID NOT HELP. REMAINS HALLUCINATING.
--- NOTE | 2018-06-04 05:18 | NUR ---
PATIENT SLEEPING SOME BUT AT 05OO IS SAWAKE AGAIN. REMAINS IN BED. BED ALARM ON. REMAINS HALLUCINATING.
[2018-06-04 07:00] VITALS: BP 198/102
--- NOTE | 2018-06-04 10:41 | NUR ---
Nutrition: assess d/t LOS. Pt admitted for sepsis and hypoxia; hx of dementia. No new weight available. Pt sleeping during attempted visit. Per nursing, pt is eating fairly well (~50% of breakfast today). Remains low risk.
[2018-06-04 13:24] VITALS: BP 172/72
--- NOTE | 2018-06-04 14:54 | NUR ---
ON-GOING ASSESSMENT: CM REVIEWED CHART. PT IS SLOWLY PROGRESSING TOWARDS DISCHARGE GOALS. PT IS NOT STABLE FOR DISCHARGE AT THIS TIME. CM FAXED CLINICAL TO [facility] ADMISSIONS TO UPDATE. CM WILL CONTINUE TO FOLLOW TO ASSIST NEEDED.
[2018-06-04 16:07] VITALS: BP 187/95
--- NOTE | 2018-06-04 18:04 | NUR ---
ASSUMED PATIENT CARE AT 0700. ALERT AND CONFISED IN AM. PATIENT WENT TO SLEEP AT 1000. HARDLY WAKE UP TO HAVE LUNCH. JACI PFEIFFER. SLOWLY TOWARDS POC GOALS.
[2018-06-04 19:50] VITALS: BP 169/81
[2018-06-05 04:15] VITALS: BP 151/78
--- NOTE | 2018-06-05 06:26 | NUR ---
Pt. has slept well during the night. Able to state name,, she's at the hospital. No hallucinations and answers appropriately. Bed alarm on. Tolerated room air well with O2 sat of 96% even while sound asleep. Up with assist to commode to void. Making progress towards care plan goals.
[2018-06-05 07:00] VITALS: BP 167/78
[2018-06-05 08:34] VITALS: BP 167/78
[2018-06-05] MEDS ORDERED: ZOSYN 3.373.375 GM/1 IV (10:21)
[2018-06-05] MEDS ORDERED: HYDRALAZINE 2525 MG PO (10:22)
[2018-06-05] MEDS ORDERED: CARDURA4 MG PO (10:23)
[2018-06-05] MEDS ORDERED: MELATONIN5 M1 PO (10:24)
--- NOTE | 2018-06-05 11:18 | NUR ---
assumed patient care at 0700. a/o x4. no hallucination noted today. up walk with walker. progressing towards poc goals.
[2018-06-05 11:50] VITALS: BP 148/76
--- NOTE | 2018-06-05 13:26 | NUR ---
ON-GOING ASSESSMENT: CM REVIEWED CHART. PATIENT IS MEDICALLY STABLE TO DISCHARGE TODAY TO [facility]. CM NOTIFIED ADMISSIONS DELLAS AT [facility] VIA . CM ALSO FAXED DISCCHARGE ORDERS OVER TO [facility] AND CONFIRMED THEY RECEIVED IT. CM RECEIVED A CALL FROM THE CHARGE NURSE STATING THEY CAN ACCEPT THE PATIENT BACK BUT PREFER AFTER 2PM. CM PROVIDED THE BEDSIDE RN WITH THE NUMBER FOR REPORT AND TO ASK FOR THE CHARGE NURSE ON THE M[facility] SIDE. CHART COPY WAS ORDERED. [facility] DOES NOT PROVIDE TRANSPROTATION BUT PT HAS MEDICAID SO SET UP TRANSPROTATION THROUGH [employer] CM CONTACTED [facility] AT [phone] AND ARRANGED TRANSPROTATION FOR 1400 (3 HR WINDOW). CM NOTIFIED PATIENTS DAUGHTER VIVIANA OF DISCHARGE. PT REPORTS NO FURTHER NEEDS FROM [facility] AT THIS TIME.
== END 2018-06-05 16:31 | DRG 871 ==
LOC: ER 19:55 → 3W 21:56 → EROBS 21:56 → 3W 22:27
PROVIDERS: Emergency Medicine; Internal Medicine Pulmonary Disease; ADMIT Internal Medicine
DX: A41.9 Sepsis, unspecified organism (principal); J96.01 Acute respiratory failure with hypoxia; G92 Toxic encephalopathy; J69.0 Pneumonitis due to inhalation of food and vomit; N12 Tubulo-interstitial nephritis, not specified as acute or chronic; J44.1 Chronic obstructive pulmonary disease with (acute) exacerbation; F23 Brief psychotic disorder; I25.10 Atherosclerotic heart disease of native coronary artery without angina pectoris; E78.00 Pure hypercholesterolemia, unspecified; I10 Essential (primary) hypertension; F32.9 Major depressive disorder, single episode, unspecified; E11.40 Type 2 diabetes mellitus with diabetic neuropathy, unspecified; Z96.653 Presence of artificial knee joint, bilateral; F03.90 Unspecified dementia, unspecified severity, without behavioral disturbance, psychotic disturbance, mood disturbance, and anxiety; D64.9 Anemia, unspecified; K21.9 Gastro-esophageal reflux disease without esophagitis; Z66 Do not resuscitate; R13.13 Dysphagia, pharyngeal phase; G25.81 Restless legs syndrome; R41.0 Disorientation, unspecified; G47.33 Obstructive sleep apnea (adult) (pediatric); E66.8 Other obesity; Z95.5 Presence of coronary angioplasty implant and graft; Z68.22 Body mass index [BMI] 22.0-22.9, adult; Z90.710 Acquired absence of both cervix and uterus; Z90.49 Acquired absence of other specified parts of digestive tract; Z98.49 Cataract extraction status, unspecified eye; Z88.8 Allergy status to other drugs, medicaments and biological substances; Z88.6 Allergy status to analgesic agent; Z88.1 Allergy status to other antibiotic agents; Z91.013 Allergy to seafood; Z95.1 Presence of aortocoronary bypass graft; Z79.82 Long term (current) use of aspirin; Z79.899 Other long term (current) drug therapy; Y95 Nosocomial condition
CPT/HCPCS: 10879; 27000